=== PATIENT | male | born 1945 | race Caucasian/White ===

== ENCOUNTER 2018-07-07 22:10 | Emergency (ER) | payer MEDICARE ==
[2018-07-07] MEDS ORDERED: NS 0.9% 1000 ML*IV.FLUID IV ONE (22:35)
--- NOTE | 2018-07-07 22:40 | ED ---
Adult Trauma - HPI Summary HPI Summary: This patient is a 73 year old M brought in by ambulance with a chief complaint of fall since just [employer]. Patient reports throat pain, generalized myalgia, and abdominal pain, by yelling out in pain when touched in those places. The patient can barely talk and does not sit up during the examination or history. Level 5 caveat. I spoke with staff at the SNF and they tell me he was somewhat lethargic through the afternoon shift and had fever. This preceded his fall. They did not notice any other more specific problems. - History of Current Complaint Stated Complaint: FALL Hx From Patient Unobtainable Due To: Other - barely speaks or responds to verbal stimuli Mechanism of Injury: Fall Location: Neck, Abdomen/Pelvis Character: Aching - Allergy/Home Medications Allergies/Adverse Reactions: Allergies Allergy/AdvReac Type Severity Reaction Status Date / Time lactose Allergy Unknown Verified 07/07/18 23:00 Reaction Details Home Medications: Home Medications Aspirin [Aspir-Low] 81 mg PO DAILY 07/07/18 [History Confirmed 07/07/18] Losartan Potassium [Cozaar] 50 mg PO DAILY 07/07/18 [History Confirmed 07/07/18] Lurasidone(*) [Latuda] 20 mg PO DAILY 07/07/18 [History Confirmed 07/07/18] Memantine HCl 10 mg PO DAILY 07/07/18 [History Confirmed 07/07/18] QUEtiapine TAB* [Seroquel 100 MG *] 150 mg PO TID 07/07/18 [History Confirmed ] Trazodone HCl 100 mg PO BEDTIME 07/07/18 [History Confirmed 07/07/18] risperiDONE [Risperidone] 0.25 mg PO BID 07/07/18 [History Confirmed 07/07/18] PMH/Surg Hx/FS Hx/Imm Hx Previously Healthy: No - Patient is unable to give relevant history GI History: Reports: Other GI Disorders - SBO - Family History Known Family History: Positive: Unknown - unable to provide - Social History [facility]: [facility] Review of Systems - ROS Summary Review of Systems Summary: ROS limited due to the patient's inability to communicate, level 5 caveat Positive: Fever Positive: Sore Throat Positive: Abdominal Pain Positive: Myalgia - diffuse All Other Systems Reviewed And Are Negative: No Physical Exam - Summary Physical Exam Summary: Appearance: Well-appearing, Well-nourished, lying in bed comfortably. Lethargic. Follows simple commands but cannot engage in conversation. Skin: Warm, dry, no obvious rash Eyes: sclera anicteric, no conjunctival pallor ENT: mucous membranes moist, pharynx appears normal Neck: Supple, nontender Respiratory: Clear to auscultation, no signs of respiratory distress Cardiovascular: Normal S1, S2. No murmurs. Normal distal pulses in tibial and radial bilaterally. Abdomen: Soft, normal active bowel sounds present. Lower abdomen is tender to the touch but there are no peritoneal signs. Musculoskeletal: Normal, Strength/ROM Intact Neurological: awake and alert, mentation is somewhat confused, speech is mildly slurred. Psychiatric: affect is normal, does not appear anxious or depressed GCS: 14 Level 5 caveat, patient cannot give relevant history Triage Information Reviewed: Yes Vital Signs Reviewed: Yes Completion Of Physical Exam Limited Due To: Level 5 Diagnostics - Laboratory Result Diagrams: 07/07/18 23:49 07/07/18 23:50 Lab Statement: Any lab studies that have been ordered have been reviewed, and results considered in the medical decision making process. - Radiology CXR Radiology Interpretation Completed By: ED Physician Summary of Radiographic Findings: No acute disease, pending official report - CT Brain CT Interpretation Completed By: Radiologist Summary of CT Findings: No acute intracranial abnormality. ED physician has reviewed this report. Abd/Pelvis CT Interpretation Completed By: Radiologist Summary of CT Findings: 1. Dilated bilateral central renal collecting system likely related to markedly distended urinary bladder. 2. Large fecal load. No obstruction. 3. A small hiatal hernia. 4. Rectal wall thickening without discrete mass. Further evaluation may be considered.5. Multiple round hypodense lesions throughout the liver with the largest one measuring 2.3 cm which may represent cysts versus hemangiomas. ED physician has reviewed this report c-spine CT Interpretation Completed By: Radiologist Summary of CT Findings: no acute disease. ED physician has reviewed this report - EKG 22:56 Cardiac Rate: NL - 86 bpm EKG Rhythm: Sinus Rhythm Summary of EKG Findings: P waves, QRS complex, and T waves are within normal limits, T waves and intervals are normal, no ischemic changes. Adult Trauma Course/Dx - Course Course Of Treatment: This patient is a 73 year old M brought in by ambulance with a chief complaint of fall since just [employer]. Patient reports throat pain, generalized myalgia, and abdominal pain, by yelling out in pain when touched in those places. The patient can barely talk and does not sit up during the examination or history. An EKG reveals NSR 86 bpm, P waves, QRS complex, and T waves are within normal limits, T waves and intervals are normal, no ischemic changes. CXR reveals, per ED physician, no acute disease. Pending official radiology report. Brain CT reveals, No acute intracranial abnormality. CT Abd/ Pelvis reveals, 1. Dilated bilateral central renal collecting system likely related to markedly distended urinary bladder. 2. Large fecal load. No obstruction. 3. A small hiatal hernia. 4. Rectal wall thickening without discrete mass. Further evaluation may be considered.5. Multiple round hypodense lesions throughout the liver with the largest one measuring 2.3 cm which may represent cysts versus hemangiomas. C-spine CT reveals no acute disease. ED physician has reviewed these reports. A phone call with the patients longterm showed that he had been lethargic all shift and had a fever, prior to the fall, so his fall is likely due to an already-present illness. Test results with no significant abnormalities. In the ED course the patient was given IV fluids, Haloperidol, Iohexol, and Morphine. Patient will be discharged with follow up from Dr. Zavala. I spoke to the patient's and went over the findings of his evaluation here, including that a specific source of fever was not found. She was agreeable with him returning to the SNF. I have deferred ordering antibiotics as a specific bacterial source was not found and he does not appear septic. - Diagnoses Provider Diagnoses: Fever, Altered mental status Discharge - Sign-Out/Discharge Documenting (check all that apply): Patient Departure - discharge - Discharge Plan Condition: Good [facility]position: [facility] Patient Education Materials: Urinary Retention in Men (ED), Fever in Adults (ED ) Referrals: Tayler Zavala DO [Primary Care Provider] - Additional Instructions: Please monitor Mr. Zuleta to make sure he urinates, if he does not through the day he should be catheterized to drain the bladder. We did not turn up any precise source of infection. I would not recommend any antibiotic therapy at present. There were blood and urine cultures taken which will be resulting over the weekend which should be checked on. - Billing Disposition and Condition Condition: GOOD Disposition: [facility] Facility - Attestation Statements Document Initiated by Marilyn: Yes Documenting Scribe: Orion Melissa Provider For Whom Marilyn is Documenting (Include Credential): Glynn Pacheco MD Scribe Attestation: Orion Tim, scribed for Glynn Pacheco MD on 07/08/18 at 1832. Scribe Documentation Reviewed: Yes Provider Attestation: The documentation as recorded by the Orion krishna accurately reflects the service I personally performed and the decisions made by me, Glynn Pacheco MD Status of Scribe Document: Viewed
[2018-07-07] MEDS ORDERED: Haloperidol INJ IV/IM* 5 MG/ML AMP IV SLOW PU ONE (23:33)
[2018-07-08 00:01] LABS: ABS Basophils 0 10^3/ul (0-0.2); ABS Eosinophils 0.3 10^3/ul (0-0.6); ABS Lymphocytes 1.4 10^3/ul (1.0-4.8); ABS Neutrophils 8.8 10^3/ul (1.5-7.7); ABS Nucleated RBC 0 10^3/ul; Eosinophil % 2.2 %; Hematocrit 37 % (42-52); Hemoglobin 12.3 g/dl (14.0-18.0); Lymphocyte % 12.3 %; Mean Corpuscular HGB Conc 33 g/dl (31-36); Mean Corpuscular Hemoglobin 30 pg (27-31); Mean Corpuscular Volume 90 fL (80-94); Mean Platelet Volume 9.2 fL (7.4-10.4); Nucleated Red Blood Cells % 0; Platelet Count 263 10^3/ul (150-450); Red Blood Count 4.13 10^6/ul (4.00-5.40); Red Cell Distribution Width 13 % (10.5-15); White Blood Count 11.5 10^3/ul (3.5-10.8)
[2018-07-08] MEDS ORDERED: Morphine VIAL* 4 MG/ML VIAL (1 ml vial) IV ONE (00:01)
[2018-07-08 00:14] LABS: Activated Partial Thrombo Time 28.8 seconds (26.0-36.3); INR 0.98 (0.77-1.02)
[2018-07-08 00:17] LABS: Albumin 4.4 g/dL (3.2-5.2); Albumin/Globulin Ratio 1.5 (1-3); BUN/Creatinine Ratio 25.5 (8-20); C Reactive Protein 10.82 mg/L (<8.01); Calcium 9.6 mg/dL (8.6-10.3); EGFR Non-African American 68.1 (>60); Globulin 2.9 g/dL (2-4); Total Bilirubin 0.7 mg/dL (0.2-1.0); Total Protein 7.3 g/dL (6.4-8.9)
[2018-07-08] MEDS ORDERED: Iohexol 300* (CONTRAST) 10 ML SDV IV ONE (00:40)
[2018-07-08 04:00] LABS: Urine Appearance Cloudy; Urine Bilirubin Negative (Negative); Urine Blood Negative (Negative); Urine Color Yellow; Urine Glucose Negative (Negative); Urine Ketones Negative (Negative); Urine Nitrite Negative (Negative); Urine Protein Negative (Negative); Urine Specific Gravity 1.021 (1.010-1.030); Urine Urobilinogen Negative (Negative)
[2018-07-08 08:58] VITALS: BP 168/99
== END 2018-07-08 05:42 ==
LOC: ED 22:10
DX: R50.9 Fever, unspecified (principal); R41.82 Altered mental status, unspecified; J02.9 Acute pharyngitis, unspecified; R10.9 Unspecified abdominal pain; M79.10 Myalgia, unspecified site
CPT/HCPCS: 36415; 70450; 71045; 72125; 74177; 80053; 81003; 83605; 84484; 85025; 85610; 85730; 86140; 87040; 93005; 96361; 96374; 96375; 99284; J1630; J2270; Q9967

== ENCOUNTER 2018-07-08 21:27 | Observation (INO) | payer MEDICARE ==
[2018-07-08] MEDS ORDERED: NS 0.9% 1000 ML*IV.FLUID IV ONE (21:42)
[2018-07-08 23:16] LABS: ABS Basophils 0 10^3/ul (0-0.2); ABS Eosinophils 0.1 10^3/ul (0-0.6); ABS Lymphocytes 0.7 10^3/ul (1.0-4.8); ABS Monocytes 0.9 10^3/ul (0-0.8); ABS Neutrophils 8.7 10^3/ul (1.5-7.7); ABS Nucleated RBC 0 10^3/ul; Eosinophil % 0.5 %; Hematocrit 33 % (42-52); Hemoglobin 11.1 g/dl (14.0-18.0); Lymphocyte % 6.6 %; Mean Corpuscular HGB Conc 34 g/dl (31-36); Mean Corpuscular Hemoglobin 31 pg (27-31); Mean Corpuscular Volume 90 fL (80-94); Nucleated Red Blood Cells % 0; Platelet Count 214 10^3/ul (150-450); Red Blood Count 3.62 10^6/ul (4.00-5.40); Red Cell Distribution Width 13 % (10.5-15); White Blood Count 10.4 10^3/ul (3.5-10.8)
[2018-07-08 23:22] LABS: INR 1.06 (0.77-1.02)
[2018-07-08 23:35] LABS: Albumin 3.5 g/dL (3.2-5.2); Albumin/Globulin Ratio 1.2 (1-3); BUN/Creatinine Ratio 22.2 (8-20); Calcium 8.5 mg/dL (8.6-10.3); EGFR Non-African American 82.3 (>60); Potassium 3.8 mmol/L (3.5-5.0); Total Bilirubin 0.5 mg/dL (0.2-1.0); Total Protein 6.5 g/dL (6.4-8.9)
--- NOTE | 2018-07-08 23:44 | ED ---
Altered Mental Status - HPI Summary HPI Summary: This patient is a 73 year old M brought in by ambulance to [facility] from [facility] due to increased AMS and weakness with difficulty ambulating and a fall earlier in the day. LOC is unknown. Patient seen in ED yesterday s/p fall and was unable to communicate at that time due to AMS. Patient is unable to provide adequate history. Level 5 caveat. - History Of Current Complaint Chief Complaint: EDWeakness Stated Complaint: AMS Time Seen by Provider: 07/08/18 21:30 Hx Obtained From: EMS Hx From Patient Unobtainable Due To: Extremis Onset/Duration: Unknown Timing: Constant Severity Initially: Moderate Severity Currently: Severe Aggravating Factor(s): Unknown - Allergies/Home Medications Allergies/Adverse Reactions: Allergies Allergy/AdvReac Type Severity Reaction Status Date / Time lactose Allergy Unknown Verified 07/09/18 00:08 Reaction Details Home Medications: Home Medications Senna-Docusate Sodium Tablet 1 tab PO DAILY 07/09/18 [History Confirmed 07/09/18 ] PMH/Surg Hx/FS Hx/Imm Hx GI History: Reports: Other GI Disorders - SBO Neurological History: Reports: Hx Dementia Infectious Disease History: Unable to Obtain/Confirm Infectious Disease History: Denies: Traveled Outside the [place] in Last 30 Days - Family History Known Family History: Positive: Unknown - unable to provide - Social History [facility]: [facility] Alcohol Use: None Substance Use Type: Reports: None Smoking Status (MU): Never Smoked Tobacco Review of Systems Positive: Fatigue Positive: Weakness All Other Systems Reviewed And Are Negative: No - Comments Additional Review of Systems Comments: LEVEL 5 Caveat. Physical Exam - Summary Physical Exam Summary: Appearance: Well-appearing, Well-nourished, lying in bed comfortably, awake and alert with strong voice, but is unable to provide adequate history Skin: Warm, dry, no obvious rash Eyes: sclera anicteric, no conjunctival pallor ENT: mucous membranes moist, pharynx appears normal Neck: Supple, nontender Respiratory: Clear to auscultation, no signs of respiratory distress Cardiovascular: Normal S1, S2. No murmurs. Normal distal pulses in tibial and radial bilaterally. Abdomen: Soft, nontender, normal active bowel sounds present Musculoskeletal: Normal, Strength/ROM Intact Neurological:, awake and alert, mentation is normal, speech is fluent and appropriate Psychiatric: affect is normal, does not appear anxious or depressed Triage Information Reviewed: Yes Vital Signs On Initial Exam: Initial Vitals Temp Pulse Resp BP Pulse Ox 97.3 F 90 18 176/98 97 07/08/18 21:34 07/08/18 21:34 07/08/18 21:34 07/08/18 21:34 07/08/18 21:34 Vital Signs Reviewed: Yes Diagnostics - Vital Signs Vital Signs Temp Pulse Resp BP Pulse Ox 07/08/18 22:36 84 19 169/108 96 07/08/18 22:06 89 18 158/97 97 07/08/18 22:03 20 07/08/18 21:37 87 20 176/98 98 07/08/18 21:36 91 9 97 07/08/18 21:34 97.3 F 90 18 176/98 97 - Laboratory Lab Results: Lab Results 07/08/18 07/08/18 07/08/18 Range/Units 22:50 22:50 22:50 WBC 10.4 (3.5-10.8) 10^3/ul RBC 3.62 L (4.00-5.40) 10^6/ul Hgb 11.1 L (14.0-18.0) g/dl Hct 33 L (42-52) % MCV 90 (80-94) fL MCH 31 (27-31) pg MCHC 34 (31-36) g/dl RDW 13 (10.5-15) % Plt Count 214 (150-450) 10^3/ul MPV 9.0 (7.4-10.4) fL Neut % (Auto) 83.6 % Lymph % (Auto) 6.6 % [place] % (Auto) 9.0 % Eos % (Auto) 0.5 % Baso % (Auto) 0.3 % Absolute Neuts (auto) 8.7 H (1.5-7.7) 10^3/ul Absolute Lymphs (auto) 0.7 L (1.0-4.8) 10^3/ul Absolute Monos (auto) 0.9 H (0-0.8) 10^3/ul Absolute Eos (auto) 0.1 (0-0.6) 10^3/ul Absolute Basos (auto) 0 (0-0.2) 10^3/ul Absolute Nucleated RBC 0 10^3/ul Nucleated RBC % 0 INR (Anticoag Therapy) 1.06 H (0.77-1.02) Sodium 138 (135-145) mmol/L Potassium 3.8 (3.5-5.0) mmol/L Chloride 109 (101-111) mmol/L Carbon Dioxide 23 (22-32) mmol/L Anion Gap 6 (2-11) mmol/L BUN 20 (6-24) mg/dL Creatinine 0.90 (0.67-1.17) mg/dL Est GFR ( Amer) 99.5 (>60) Est GFR (Non-Af Amer) 82.3 (>60) BUN/Creatinine Ratio 22.2 H (8-20) Glucose 107 H (70-100) mg/dL Lactic Acid (0.5-2.0) mmol/L Calcium 8.5 L (8.6-10.3) mg/dL Total Bilirubin 0.50 (0.2-1.0) mg/dL AST 15 (13-39) U/L ALT 9 (7-52) U/L Alkaline Phosphatase 73 (34-104) U/L Troponin I 0.00 (<0.04) ng/mL Total Protein 6.5 (6.4-8.9) g/dL Albumin 3.5 (3.2-5.2) g/dL Globulin 3.0 (2-4) g/dL Albumin/Globulin Ratio 1.2 (1-3) 07/08/18 Range/Units 22:50 WBC (3.5-10.8) 10^3/ul RBC (4.00-5.40) 10^6/ul Hgb (14.0-18.0) g/dl Hct (42-52) % MCV (80-94) fL MCH (27-31) pg MCHC (31-36) g/dl RDW (10.5-15) % Plt Count (150-450) 10^3/ul MPV (7.4-10.4) fL Neut % (Auto) % Lymph % (Auto) % [place] % (Auto) % Eos % (Auto) % Baso % (Auto) % Absolute Neuts (auto) (1.5-7.7) 10^3/ul Absolute Lymphs (auto) (1.0-4.8) 10^3/ul Absolute Monos (auto) (0-0.8) 10^3/ul Absolute Eos (auto) (0-0.6) 10^3/ul Absolute Basos (auto) (0-0.2) 10^3/ul Absolute Nucleated RBC 10^3/ul Nucleated RBC % INR (Anticoag Therapy) (0.77-1.02) Sodium (135-145) mmol/L Potassium (3.5-5.0) mmol/L Chloride (101-111) mmol/L Carbon Dioxide (22-32) mmol/L Anion Gap (2-11) mmol/L BUN (6-24) mg/dL Creatinine (0.67-1.17) mg/dL Est GFR ( Amer) (>60) Est GFR (Non-Af Amer) (>60) BUN/Creatinine Ratio (8-20) Glucose (70-100) mg/dL Lactic Acid 1.1 (0.5-2.0) mmol/L Calcium (8.6-10.3) mg/dL Total Bilirubin (0.2-1.0) mg/dL AST (13-39) U/L ALT (7-52) U/L Alkaline Phosphatase (34-104) U/L Troponin I (<0.04) ng/mL Total Protein (6.4-8.9) g/dL Albumin (3.2-5.2) g/dL Globulin (2-4) g/dL Albumin/Globulin Ratio (1-3) Result Diagrams: 07/09/18 06:32 07/08/18 22:50 Lab Statement: Any lab studies that have been ordered have been reviewed, and results considered in the medical decision making process. Altered Mental Statu Course/Dx - Course Course Of Treatment: 73 year old M brought in by ambulance to [facility] from [facility] due to increased AMS and weakness with difficulty ambulating and a fall earlier in the day. LOC is unknown. Patient seen in ED yesterday s/p fall and was unable to communicate at that time due to AMS. Patient is unable to provide adequate history due to dementia. Level 5 caveat. Patient is otherwise awake and alert. Patient is given 2310mls of IV fluids. Bloodwork obtained with WBC 11.2. Case discussed with hospitalist, Dr. Gentile, who agress to admit at 11:38. - Diagnoses Provider Diagnoses: Altered mental status, Frequent falls Discharge - Sign-Out/Discharge Documenting (check all that apply): Patient Departure - admit - Discharge Plan Condition: Stable Disposition: ADMITTED TO [facility] - Billing Disposition and Condition Condition: STABLE Disposition: Admitted to [facility] - Attestation Statements Document Initiated by Marilyn: Yes Documenting Scribe: Ai Pepe Provider For Whom Mariyln is Documenting (Include Credential): Glynn Pacheco MD Scribe Attestation: Ai Tim, scribed for Glynn Pacheco MD on 07/09/18 at 1845. Scribe Documentation Reviewed: Yes Provider Attestation: The documentation as recorded by the Ai krishna accurately reflects the service I personally performed and the decisions made by Glynn gibbs MD Status of Scribe Document: Viewed
[2018-07-09] MEDS ORDERED: HYDROcodone/ACETAMIN 5-325 MG* 1 TAB PO PRN (04:03)
[2018-07-09] MEDS: amLODIPine TAB* 5 MG PO SCH ×2 (05:05→08:04)
[2018-07-09 07:00] LABS: ABS Basophils 0 10^3/ul (0-0.2); ABS Eosinophils 0.2 10^3/ul (0-0.6); ABS Neutrophils 8.1 10^3/ul (1.5-7.7); ABS Nucleated RBC 0 10^3/ul; Hematocrit 31 % (42-52); Hemoglobin 10.7 g/dl (14.0-18.0); Lymphocyte % 9.4 %; Mean Corpuscular HGB Conc 34 g/dl (31-36); Mean Corpuscular Hemoglobin 31 pg (27-31); Mean Corpuscular Volume 90 fL (80-94); Mean Platelet Volume 9.4 fL (7.4-10.4); Nucleated Red Blood Cells % 0; Platelet Count 204 10^3/ul (150-450); Red Blood Count 3.48 10^6/ul (4.00-5.40); Red Cell Distribution Width 13 % (10.5-15); White Blood Count 10.3 10^3/ul (3.5-10.8)
[2018-07-09] MEDS ORDERED: LORazepam INJ* 2 MG/ML 1 ML VIAL IV PUSH ONE (07:42)
[2018-07-09] MEDS: Lidocaine 2% JELLY* 6 ML JELLY TOPICAL SCH ×3 (08:03→21:16)
[2018-07-09] MEDS: QUEtiapine TAB* 100 MG PO SCH ×2 (08:04→14:48)
[2018-07-09] MEDS: Aspirin EC TAB* 81 MG TAB.EC PO SCH (08:04)
[2018-07-09] MEDS: Senna TAB PO SCH (08:04)
[2018-07-09] MEDS: Lurasidone(*) 20 MG TAB PO SCH (08:04)
[2018-07-09] MEDS: Memantine TAB* 10 MG PO SCH (08:04)
[2018-07-09] MEDS ORDERED: Losartan TAB* 25 MG PO SCH (09:00)
--- NOTE | 2018-07-09 12:00 | PN ---
Subjective Date of Service: 07/09/18 Interval History: Mr. Zuleta awakens to gentle stimulation and states, "oh boy." His family confirms that he sleeps during the day and is up all night, which has been his pattern for decades. His notes that he has had urinary retention intermittently for quite some time and that he used to straight cath himself before he forgot how to do it. He has also had a bell in the past but he pulled it out once and also cut the tubing with a pair of scissors. Objective Active Medications: Hydrocodone Bitart/Acetaminophen ([place] 5-325 Tab*) 1 tab PO Q6H PRN Amlodipine Besylate (Norvasc Tab*) 5 mg PO DAILY TAY Aspirin (Aspirin Ec Tab*) 81 mg PO DAILY TAY Lidocaine HCl (Lidocaine 2% Jelly*) 1 applic TOPICAL TID TAY Losartan Potassium (Cozaar Tab*) 50 mg PO DAILY TAY Lurasidone HCl (Latuda) 20 mg PO DAILY TAY Memantine (Namenda Tab*) 10 mg PO DAILY TAY Quetiapine Fumarate (Seroquel Tab*) 150 mg PO TID TAY Risperidone (Risperdal) 0.25 mg PO BID TAY Senna (Senokot Tab*) 1 tab PO DAILY TAY Trazodone HCl (Desyrel Tab*) 100 mg PO BEDTIME TAY Vital Signs: Temp Pulse Resp BP Pulse Ox 98.3 F 74 18 164/86 96 07/09/18 08:04 07/09/18 08:04 07/09/18 08:14 07/09/18 08:04 07/09/18 08:04 Oxygen Devices in Use Now: None Appearance: Male lying in bed in NAD Eyes: No Scleral Icterus Respiratory: Symmetrical Chest Expansion and Respiratory Effort, Clear to Auscultation Cardiovascular: NL Sounds; No Murmurs; No JVD, No Edema Abdominal: NL Sounds; No Tenderness; No Distention Extremities: No Edema Skin: No Rash or Ulcers Neurological: NL Muscle Strength and Tone, - - Sleeping, awakens to gentle stimulation, speech clear, follows commands Nutrition: Taking PO's Result Diagrams: 07/09/18 06:32 07/08/18 22:50 Additional Lab and Data: . Assess/Plan/Problems-Billing Assessment: Mr. Zuleta is a 73 yo M with a PMH of dementia and hypertension who was admitted on 07/09/18 with increased weakness found to have urinary retention, s/p bell placement. - Patient Problems (1) Dementia Comment: - Continue home meds and supportive care. - Family interested in decreasing meds as they are concerned this is contributing to falls, would not recommend change at this point as patient has been combative while inpatient. (2) Urinary retention Comment: - Bell with 1000ml out in ED. - Will need to be discharged with bell or routine straight caths to follow up with urology outpatient. - UA negative 07/08/18 - Start flomax and proscar (3) Hypertension Comment: - SBP 160-190s. - Amlodipine added on arrival, monitor. (4) DVT prophylaxis Comment: - Heparin SQ (5) DNR (do not resuscitate) Comment: Status and Disposition: OBV. Anticipate discharge back to [facility] when stable.
[2018-07-09] MEDS ORDERED: Docusate CAP* 100 MG PO PRN (12:10)
[2018-07-09] MEDS ORDERED: Polyethylene Glycol 3350* 17 GM PACKET PO PRN (12:10)
--- NOTE | 2018-07-09 13:28 | HP ---
CC: Dr. Zavala, [facility] HISTORY AND PHYSICAL: DATE OF ADMISSION: 07/09/18 CHIEF COMPLAINT: Fall. HISTORY OF PRESENT ILLNESS: Mr. Zuleta is a 73-year-old resident of [facility], who was in the emergency department yesterday after a fall and reports of increased lethargy and decreased responsiveness. The patient cannot give any history due to dementia. The patient had a negative head CT, negative C- spine, and a CT of the abdomen and pelvison 07/08/18 which showed a distended bladder, large volume of stool. At that time, he was diagnosed with some urinary retention but then was not catheterized. He was sent home with orders to catheterize in the jail if he did not void. The UA taken at 3 :40 a.m. on the day prior to admission was negative for infection of blood. There was also a negative flu swab taken yesterday. The patient's was in contact with the ER yesterday and okayed him going back to the jail. However, today, he had another fall and was less responsive again and was sent back to the emergency department. PAST MEDICAL HISTORY: Includes: 1. Alzheimer disease. 2. Hypertension. 3. BPH. 4. Osteoporosis. PAST SURGICAL HISTORY: Unknown. MEDICATIONS: In the emergency room: 1. Aspirin 81 mg p.o. daily. 2. Cozaar 50 mg p.o. daily. 3. Latuda 20 mg p.o. daily. 4. Memantine 10 mg p.o. daily. 5. Seroquel 150 mg p.o. t.i.d. 6. Risperidone 0.25 mg p.o. b.i.d. 7. Senna/docusate 1 tab p.o. daily. 8. Trazodone 100 mg p.o. q.h.s. ALLERGIES: Lactose. FAMILY HISTORY: Attempted but unable to respond due to his dementia. SOCIAL HISTORY: He is . Rest of the social history is unknown, it is not documented in the jail records. REVIEW OF SYSTEMS: Attempted, unable to respond due to his dementia. PHYSICAL EXAMINATION GENERAL: He is sleeping but arousable, he answers yes or no questions appropriately at times. VITAL SIGNS: Temperature is 36.3; pulse 83, up to 102; respirations are 20; blood pressure is 192/96; oxygen saturation 97%. HEENT: Head is normocephalic, atraumatic. Sclerae anicteric. Pupils equal, round, reactive to light and accommodation. Oropharynx is moist. No lesions. NECK: No JVD. No carotid bruits. No thyromegaly. LUNGS: Clear to auscultation and percussion bilaterally. HEART: Tachycardic, regular, no murmurs. ABDOMEN: Soft. Tender in the suprapubic region, positive bowel sounds, no masses. EXTREMITIES: No peripheral edema. Dorsalis pedis pulses are 1+ bilaterally. NEUROLOGIC: Cranial nerves II through XII are intact. Motor strength is not assessed, but he is moving all 4 extremities with equal power. He is alert when aroused but not oriented to place, time, or person. LABORATORY DATA: Sodium 138, potassium 3.8, chloride 109, bicarb 23, BUN 20, creatinine 0.9, glucose 107. White count 10.4, hemoglobin 11.1, hematocrit 33% , platelets 214. AST is 115, ALT is 9, lactic acid 1.1, troponin 0.00, INR 1.06. Chest x-ray was negative on the day prior to admission. Head CT negative on the day prior to admission. ASSESSMENT AND PLAN: A 73-year-old man with repeated falls in the jail and altered mental status. No clear infectious or reversible etiology of these falls are found on a thorough workup yesterday and today. He has had some bladder distention on CT yesterday and I will place a Jo catheter given the diagnosis of urinary retention as a cause of his confusion. He also had constipation on CT yesterday and I will make sure he is started on a good bowel regimen today. No other sign of pneumonia, UTI, or other infection or metabolic derangement which would cause confusion or fall as was found. He may have a viral syndrome. Code status is do not resuscitate per jail records. DVT prophylaxis will be sequential compression devices. [id number] #: [id number] MTDD
[2018-07-09] MEDS: Heparin VIAL(*) 5000 UNITS/ML VIAL (FIVE THOUSAND) SUBCUT SCH ×2 (14:49→21:17)
[2018-07-09] MEDS ORDERED: QUEtiapine TAB* 100 MG PO ONE (18:20)
[2018-07-09] MEDS ORDERED: QUEtiapine TAB* 25 MG PO ONE (19:00)
[2018-07-09] MEDS ORDERED: traZODone TAB* 100 MG PO SCH (21:00)
[2018-07-10] MEDS: Heparin VIAL(*) 5000 UNITS/ML VIAL (FIVE THOUSAND) SUBCUT SCH (05:35)
[2018-07-10] MEDS ORDERED: Finasteride TAB* 5 MG PO SCH (09:00)
[2018-07-10] MEDS ORDERED: QUEtiapine TAB* 100 MG PO SCH (09:00)
[2018-07-10] MEDS ORDERED: Tamsulosin CAP* 0.4 MG PO SCH (09:00)
[2018-07-10] MEDS ORDERED: Losartan TAB* 25 MG PO SCH (09:00)
[2018-07-10] MEDS: Memantine TAB* 10 MG PO SCH (10:42)
[2018-07-10] MEDS: Lurasidone(*) 20 MG TAB PO SCH (10:42)
[2018-07-10] MEDS: Aspirin EC TAB* 81 MG TAB.EC PO SCH (10:42)
[2018-07-10] MEDS: amLODIPine TAB* 5 MG PO SCH (10:42)
[2018-07-10] MEDS: Senna TAB PO SCH (10:42)
[2018-07-10] MEDS: Lidocaine 2% JELLY* 6 ML JELLY TOPICAL SCH (10:42)
--- NOTE | 2018-07-10 11:13 | PN ---
Subjective Date of Service: 07/10/18 Interval History: Mr. Zuleta is confused and minimally interactive but is in no acute distress. Objective Active Medications: Hydrocodone Bitart/Acetaminophen ([place] 5-325 Tab*) 1 tab PO Q6H PRN Amlodipine Besylate (Norvasc Tab*) 5 mg PO DAILY [facility] Aspirin (Aspirin Ec Tab*) 81 mg PO DAILY TAY Docusate Sodium (Colace Cap*) 100 mg PO BID PRN Finasteride (Proscar Tab*) 5 mg PO DAILY [facility] Heparin Sodium (Porcine) (Heparin Vial(*)) 5,000 units SUBCUT Q8HR TAY Lidocaine HCl (Lidocaine 2% Jelly*) 1 applic TOPICAL TID TAY Losartan Potassium (Cozaar Tab*) 100 mg PO DAILY TAY Lurasidone HCl (Latuda) 20 mg PO DAILY TAY Memantine (Namenda Tab*) 10 mg PO DAILY TAY Polyethylene Glycol/Electrolytes (Miralax*) 17 gm PO DAILY PRN Quetiapine Fumarate (Seroquel Tab*) 150 mg PO TID [facility] Risperidone (Risperdal) 0.25 mg PO BID TAY Senna (Senokot Tab*) 1 tab PO DAILY TAY Tamsulosin HCl (Flomax Cap*) 0.4 mg PO DAILY TAY Trazodone HCl (Desyrel Tab*) 100 mg PO BEDTIME [facility] Vital Signs: Temp Pulse Resp BP Pulse Ox 98.4 F 76 18 150/81 97 07/10/18 07:59 07/10/18 07:59 07/10/18 07:59 07/10/18 07:59 07/10/18 07:59 Oxygen Devices in Use Now: None Appearance: Male lying in bed in NAD Eyes: No Scleral Icterus Ears/Nose/Mouth/Throat: Mucous Membranes Moist Neck: Trachea Midline Respiratory: Symmetrical Chest Expansion and Respiratory Effort, Clear to Auscultation Cardiovascular: NL Sounds; No Murmurs; No JVD, No Edema Abdominal: NL Sounds; No Tenderness; No Distention Extremities: No Edema Skin: No Rash or Ulcers Neurological: NL Muscle Strength and Tone, - - Opens eyes to voice, says a few words, no deficits noted, ambulated to bathroom independently, hx of dementia Nutrition: Taking PO's Result Diagrams: 07/09/18 06:32 07/08/18 22:50 Additional Lab and Data: Lab Results 07/08/18 07/08/18 07/08/18 Range/Units 22:50 22:50 22:50 WBC 10.4 (3.5-10.8) 10^3/ul RBC 3.62 L (4.00-5.40) 10^6/ul Hgb 11.1 L (14.0-18.0) g/dl Hct 33 L (42-52) % MCV 90 (80-94) fL MCH 31 (27-31) pg MCHC 34 (31-36) g/dl RDW 13 (10.5-15) % Plt Count 214 (150-450) 10^3/ul MPV 9.0 (7.4-10.4) fL Neut % (Auto) 83.6 % Lymph % (Auto) 6.6 % [place] % (Auto) 9.0 % Eos % (Auto) 0.5 % Baso % (Auto) 0.3 % Absolute Neuts (auto) 8.7 H (1.5-7.7) 10^3/ul Absolute Lymphs (auto) 0.7 L (1.0-4.8) 10^3/ul Absolute Monos (auto) 0.9 H (0-0.8) 10^3/ul Absolute Eos (auto) 0.1 (0-0.6) 10^3/ul Absolute Basos (auto) 0 (0-0.2) 10^3/ul Absolute Nucleated RBC 0 10^3/ul Nucleated RBC % 0 INR (Anticoag Therapy) 1.06 H (0.77-1.02) Sodium 138 (135-145) mmol/L Potassium 3.8 (3.5-5.0) mmol/L Chloride 109 (101-111) mmol/L Carbon Dioxide 23 (22-32) mmol/L Anion Gap 6 (2-11) mmol/L BUN 20 (6-24) mg/dL Creatinine 0.90 (0.67-1.17) mg/dL Est GFR ( Amer) 99.5 (>60) Est GFR (Non-Af Amer) 82.3 (>60) BUN/Creatinine Ratio 22.2 H (8-20) Glucose 107 H (70-100) mg/dL Lactic Acid (0.5-2.0) mmol/L Calcium 8.5 L (8.6-10.3) mg/dL Total Bilirubin 0.50 (0.2-1.0) mg/dL AST 15 (13-39) U/L ALT 9 (7-52) U/L Alkaline Phosphatase 73 (34-104) U/L Troponin I 0.00 (<0.04) ng/mL Total Protein 6.5 (6.4-8.9) g/dL Albumin 3.5 (3.2-5.2) g/dL Globulin 3.0 (2-4) g/dL Albumin/Globulin Ratio 1.2 (1-3) 07/08/18 Range/Units 22:50 WBC (3.5-10.8) 10^3/ul RBC (4.00-5.40) 10^6/ul Hgb (14.0-18.0) g/dl Hct (42-52) % MCV (80-94) fL MCH (27-31) pg MCHC (31-36) g/dl RDW (10.5-15) % Plt Count (150-450) 10^3/ul MPV (7.4-10.4) fL Neut % (Auto) % Lymph % (Auto) % [place] % (Auto) % Eos % (Auto) % Baso % (Auto) % Absolute Neuts (auto) (1.5-7.7) 10^3/ul Absolute Lymphs (auto) (1.0-4.8) 10^3/ul Absolute Monos (auto) (0-0.8) 10^3/ul Absolute Eos (auto) (0-0.6) 10^3/ul Absolute Basos (auto) (0-0.2) 10^3/ul Absolute Nucleated RBC 10^3/ul Nucleated RBC % INR (Anticoag Therapy) (0.77-1.02) Sodium (135-145) mmol/L Potassium (3.5-5.0) mmol/L Chloride (101-111) mmol/L Carbon Dioxide (22-32) mmol/L Anion Gap (2-11) mmol/L BUN (6-24) mg/dL Creatinine (0.67-1.17) mg/dL Est GFR ( Amer) (>60) Est GFR (Non-Af Amer) (>60) BUN/Creatinine Ratio (8-20) Glucose (70-100) mg/dL Lactic Acid 1.1 (0.5-2.0) mmol/L Calcium (8.6-10.3) mg/dL Total Bilirubin (0.2-1.0) mg/dL AST (13-39) U/L ALT (7-52) U/L Alkaline Phosphatase (34-104) U/L Troponin I (<0.04) ng/mL Total Protein (6.4-8.9) g/dL Albumin (3.2-5.2) g/dL Globulin (2-4) g/dL Albumin/Globulin Ratio (1-3) Microbiology and Other Data: Microbiology 07/08/18 23:12 Aerobic Blood Culture - Preliminary Blood Venous No Growth Day 1 Anaerobic Blood Culture - Preliminary No Growth Day 1 07/08/18 23:00 Aerobic Blood Culture - Preliminary Blood Venous No Growth Day 1 Anaerobic Blood Culture - Preliminary No Growth Day 1 07/09/18 03:10 Nasal Screen MRSA (PCR) - Final Nasal Mrsa Detected Assess/Plan/Problems-Billing Assessment: Mr. Zuleta is a 73 yo M with a PMH of dementia and hypertension who was admitted on 07/09/18 with increased weakness found to have urinary retention, s/p bell placement. - Patient Problems (1) Dementia Comment: - Continue home meds and supportive care. - Family interested in decreasing meds as they are concerned this is contributing to falls, would not recommend change at this point as patient has been combative while inpatient. - Would consider decreasing meds outpatient if possible. (2) Urinary retention Comment: - Bell with 1000ml out in ED. - Plan to d/c with recommendation for at least qday straight caths. - UA negative 07/08/18 - Start flomax and proscar - Recommend outpatient follow up with Urology (3) Hypertension Comment: - SBP 150-160s. - Amlodipine added on arrival (4) DVT prophylaxis Comment: - Heparin SQ (5) DNR (do not resuscitate) Comment: Status and Disposition: OBV. Discharge to [facility].
--- NOTE | 2018-07-10 12:53 | DS ---
CC: [facility] MEDICINE DISCHARGE SUMMARY: Please note that this discharge summary will serve as an H and P for the admission to [facility]. ATTENDING PHYSICIAN: Dr. Meza * (Dictation provided by Melva Martin NP) DATE OF ADMISSION: 07/09/18 DATE OF DISCHARGE: 07/10/18 PRIMARY DIAGNOSIS: Urinary retention likely secondary to benign prostatic hypertrophy. SECONDARY DIAGNOSES: 1. Alzheimer disease. 2. Hypertension. 3. Benign prostatic hypertrophy. 4. Osteoporosis. MEDICATIONS: At the time of discharge are: 1. Senna 1 tab p.o. daily (new medication). 2. Quetiapine 150 mg p.o. t.i.d. 3. Risperidone 0.25 mg p.o. b.i.d. 4. Trazodone 100 mg p.o. at bedtime. 5. Namenda 10 mg p.o. daily. 6. Latuda 20 mg p.o. daily. 7. Losartan 50 mg p.o. daily. 8. Aspirin 81 mg p.o. daily. 9. Amlodipine 5 mg p.o. daily (new medication). 10. Tamsulosin 0.4 mg p.o. daily (new medication). 11. Polyethylene glycol 17 g p.o. daily p.r.n. (new medication). 12. Finasteride 5 mg p.o. daily (new medication). 13. Docusate 100 mg p.o. b.i.d. p.r.n. HISTORY OF PRESENT ILLNESS: Mr. Zuleta is a 73-year-old male who presented to the emergency room on 07/09/18 out of concern for weakness. Please see the dictated H and P from Dr. Fortino Gentile for complete details. In brief, the patient had been to the emergency room with evaluation with a head CT, C-spine CT, and CT of the abdomen on 07/07/18. At that time, the CT brain and CT C- spine were read as normal and it was believed that the CT abdomen was normal, but on retrospective review, I do see that it did show large volume of urinary retention. The patient had been sent back to [facility] and then developed increased lethargy and decreased responsiveness and returned to the ED on . A review was made of the CT scan and note was made of urinary retention and a Jo was placed. Mr. Zuleta has been doing well since admission. I have spoken at length with the patient's . She states that he has a long-term known history of urinary retention. In the past, he would straight cath himself until he " forgot how to do it." The patient also has a history of pulling out and cutting his Jo in the past. Therefore, I think the Jo catheter is not a safe option. He will therefore require twice daily straight catheterization with further catheterization as needed for urinary retention. The patient has also been recommended to follow up with [facility] and I have also started Flomax and Proscar. Mr Zuleta has significant dementia. He is reported to have multiple year-long history of sleeping during the day and being awake at night, which has been evidenced here in the hospital. He has been generally behaviorally appropriate and we have continued the medications, which were started at [facility] for episodes of aggression. The patient's has been concerned about these medications and the fact that they might increase his raisk of falls. I have counseled her that I think it would be more appropriate for the providers at [facility] to address any adjustments to this medication as he would need close follow up and monitoring. Mr. Zuleta is medically stable for discharge to home. DISPOSITION: To [facility]. DIET: Regular. ACTIVITY: As tolerated. RECOMMENDATIONS: Please straight cath b.i.d. and as needed for urinary retention. FOLLOWUP PLANS: Please consider followup with [facility] for urinary retention. TIME SPENT: Approximately 60 minutes was spent on the discharge of this patient , more than half the time was spent with the patient at the bedside reviewing the events leading up to this hospitalization, performing the physical examination, and reviewing the plan of care. MELVA MARTIN, SANDRA [id number]/CPS #: [id number] AURELIA
[2018-07-10 13:02] VITALS: BP 133/67
== END 2018-07-10 13:50 ==
LOC: ED 21:27 → MED 07-09 00:48
PROVIDERS: ADMIT Internal Medicine; ATTEND Internal Medicine
DX: R33.9 Retention of urine, unspecified (principal); G30.9 Alzheimer's disease, unspecified; F02.80 Dementia in other diseases classified elsewhere, unspecified severity, without behavioral disturbance, psychotic disturbance, mood disturbance, and anxiety; I10 Essential (primary) hypertension; N40.0 Benign prostatic hyperplasia without lower urinary tract symptoms; M81.0 Age-related osteoporosis without current pathological fracture; Z79.82 Long term (current) use of aspirin
CPT/HCPCS: 36415; 80053; 83605; 84484; 85025; 85610; 86140; 87040; 87641; 96372; 96374; 99285; A9270-GY; G0378; J1644

== ENCOUNTER 2018-08-28 16:11 | Emergency (ER) | payer MEDICARE ==
--- NOTE | 2018-08-28 16:51 | ED ---
Head Injury - HPI Summary HPI Summary: Patient is a 73-year-old male presenting to the ED from [facility] with an apparent fall, which was unwitnessed. Patient denied any pain or concerns, however he has dementia. On arrival, he is difficult to arouse. He is responsive, although with sternal rub and painful stimulation. He was sent by [facility] for a head CT. Unknown if he takes blood thinners. - History Of Current Complaint Chief Complaint: EDAltMentalStatus Stated Complaint: FALL Time Seen by Provider: 08/28/18 16:18 Hx Obtained From: Patient Mechanism Of Injury: Direct Blow Onset/Duration: Started Hours Ago Onset of Pain: Hours Severity Currently: Moderate Severity Initially: Moderate Pain Intensity: 0 Pain Scale Used: 0-10 Numeric - Risk Factors SDH Risk Factor: Male - Allergies/Home Medications Allergies/Adverse Reactions: Allergies Allergy/AdvReac Type Severity Reaction Status Date / Time lactose Allergy Unknown Verified 08/28/18 17:50 Reaction Details PMH/Surg Hx/FS Hx/Imm Hx Previously Healthy: Yes Cardiovascular History: Reports: Hx Hypertension GI History: Reports: Other GI Disorders - SBO History: Reports: Hx Benign Prostatic Hyperplasia Musculoskeletal History: Reports: Hx Osteoporosis Sensory History: Denies: Hx Contacts or Glasses, Hx Hearing Aid Opthamlomology History: Denies: Hx Contacts or Glasses Neurological History: Reports: Hx Dementia Infectious Disease History: No Infectious Disease History: Denies: Traveled Outside the [place] in Last 30 Days - Family History Known Family History: Positive: Unknown - unable to provide - Social History Occupation: Unemployed [facility] Alcohol Use: None Hx Substance Use: No Substance Use Type: Reports: None Hx Tobacco Use: No Smoking Status (MU): Never Smoked Tobacco Review of Systems Constitutional: Negative Negative: Fever, Chills, Fatigue, Skin Diaphoresis Negative: Palpitations, Chest Pain Negative: Shortness Of Breath, Cough Genitourinary: Negative Positive: no symptoms reported, see HPI Negative: Arthralgia, Myalgia Skin: Negative Neurological: Negative Psychological: Normal All Other Systems Reviewed And Are Negative: Yes Physical Exam Triage Information Reviewed: Yes Vital Signs On Initial Exam: Initial Vitals Temp Pulse Resp BP Pulse Ox 97.5 F 69 8 138/84 92 08/28/18 16:25 08/28/18 16:25 08/28/18 16:25 08/28/18 16:25 08/28/18 16:25 Completion Of Physical Exam Limited Due To: Altered Mental Status - dementia at baseline, decreased responsiveness Skin: Positive: Skin Color Reflects Adequate Perfusion Head/Face: Positive: Normal Head/Face Inspection Eyes: Positive: EOMI, BINA, Conjunctiva Clear Respiratory/Lung Sounds: Positive: Other - decreased respirations Cardiovascular: Positive: Pulses are Symmetrical in both Upper and Lower Extremities Musculoskeletal: Positive: Strength/ROM Intact Neurological: Positive: Sensory/Motor Intact, Speech Normal AVPU Assessment: Pain (Reponds To) - responds only to painful stimuli - Erna Coma Scale Best Eye Response: 2 - To Pain Best Motor Response: 5 - Purposeful Movement Best Verbal Response: 3 - Inappropriate Words Coma Scale Total: 10 Diagnostics - Vital Signs Vital Signs Temp Pulse Resp BP Pulse Ox 08/28/18 16:25 97.5 F 69 8 138/84 92 - Laboratory Lab Statement: Any lab studies that have been ordered have been reviewed, and results considered in the medical decision making process. Head Injury Course/Dx Course Of Treatment: On arrival into the ED, patient is lethargic and sleeping. He denies any pain. He is difficult to arouse, but arousable. He is arousable with painful stimulation and sternal rub. He is able to open his eyes and respond appropriately, however continues to shut his eyes and states he is tired. CT brain obtained which shows no acute intracranial abnormalities. Previous visits to the ED for same and notes indicate he has had similar behaviors of head injury with subsequent decreased responsiveness and lethargy. Vital signs are 97.5, heart rate 69, respirations 8, 92% on room air at 138/84. Tech at bedside x 20 minutes with measuring respirations averagin between 13-18. Monitor not picking up well d/t shallow respirations. Patient awakens x 2 and attempts to leave, ambulating well and talking. He is safe for discharge home at this time and no other signs of trauma are visualized. - Diagnoses Provider Diagnoses: Dementia, Head injury, Fall Discharge - Sign-Out/Discharge Documenting (check all that apply): Patient Departure Patient Received Moderate/Deep Sedation with Procedure: No - Discharge Plan Condition: Stable Disposition: HOME Referrals: Tayler Zavala DO [Primary Care Provider] - Additional Instructions: Do not give Trazodone this evening before bed Patient is lethargic and tired No intracranial abnormalities - Billing Disposition and Condition Condition: STABLE Disposition: Home
[2018-08-28 18:41] VITALS: BP 127/74
== END 2018-08-28 19:10 | disposition home or self-care (01) ==
LOC: ED 16:11
DX: F03.90 Unspecified dementia, unspecified severity, without behavioral disturbance, psychotic disturbance, mood disturbance, and anxiety (principal); S09.90XA Unspecified injury of head, initial encounter; I10 Essential (primary) hypertension; N40.0 Benign prostatic hyperplasia without lower urinary tract symptoms; W19.XXXA Unspecified fall, initial encounter; Y92.9 Unspecified place or not applicable
CPT/HCPCS: 70450; 99285

== ENCOUNTER 2018-12-06 22:44 | Emergency (ER) | payer MEDICARE, OTHER ==
--- NOTE | 2018-12-07 00:05 | ED ---
Adult Trauma - HPI Summary HPI Summary: Patient from [facility] complains of fall 2 today. History of recurrent falls. Patient baseline "pleasantly confused". No anti-coag. Medical history is dementia, HTN. Patient intermittently coherent and answers, but denies pain. - History of Current Complaint Chief Complaint: EDFall Stated Complaint: FALL PER EMS Time Seen by Provider: 12/06/18 23:03 Hx Obtained From: Patient Mechanism of Injury: Fall Loss of Consciousness: unsure Current Severity: None Pain Intensity: 0 Pain Scale Used: 0-10 Numeric Aggravating Factor(s): Nothing Alleviating Factor(s): Nothing - Additional Pertinent History Primary Care Physician: JACKY - Allergy/Home Medications Allergies/Adverse Reactions: Allergies Allergy/AdvReac Type Severity Reaction Status Date / Time lactose Allergy Unknown Verified 12/06/18 23:01 Reaction Details PMH/Surg Hx/FS Hx/Imm Hx Endocrine/Hematology History: Denies: Hx Anticoagulant Therapy Cardiovascular History: Reports: Hx Hypertension GI History: Reports: Other GI Disorders - SBO History: Reports: Hx Benign Prostatic Hyperplasia Musculoskeletal History: Reports: Hx Osteoporosis Sensory History: Denies: Hx Contacts or Glasses, Hx Hearing Aid Opthamlomology History: Denies: Hx Contacts or Glasses Neurological History: Reports: Hx Dementia Infectious Disease History: No Infectious Disease History: Denies: Traveled Outside the [place] in Last 30 Days - Family History Known Family History: Positive: Unknown - unable to provide - Social History Alcohol Use: None Hx Substance Use: No Substance Use Type: Reports: None Hx Tobacco Use: No Smoking Status (MU): Never Smoked Tobacco Review of Systems Constitutional: Negative Eyes: Negative ENT: Negative Cardiovascular: Negative Respiratory: Negative Gastrointestinal: Negative Genitourinary: Negative Musculoskeletal: Negative Skin: Negative Neurological: Negative Psychological: Normal All Other Systems Reviewed And Are Negative: Yes Physical Exam - Summary Physical Exam Summary: No trauma noted to mouth, face, head. Full range of motion of jaw and neck. No pain with palpation of neck, chest wall, back, abdomen. Patient moving all 4 extremities without indication of pain. Abdomen soft nontender. Lung sounds clear to auscultation bilaterally. No facial droop or slurred speech. Triage Information Reviewed: Yes Vital Signs On Initial Exam: Initial Vitals Temp Pulse Resp BP Pulse Ox 97.8 F 81 18 155/98 95 12/06/18 22:56 12/06/18 22:56 12/06/18 22:56 12/06/18 22:56 12/06/18 22:56 Vital Signs Reviewed: Yes Appearance: Positive: Well-Appearing Skin: Positive: Warm Head/Face: Positive: Normal Head/Face Inspection Eyes: Positive: Normal Dental: Negative: Dental Fracture @, Bleeding Neck: Positive: Supple Respiratory/Lung Sounds: Positive: Clear to Auscultation Cardiovascular: Positive: Normal Abdomen Description: Positive: Nontender Musculoskeletal: Positive: Normal Neurological: Positive: Normal Psychiatric: Positive: Normal AVPU Assessment: Alert - Erna Coma Scale Best Eye Response: 4 - Spontaneous Best Motor Response: 6 - Obeys Commands Best Verbal Response: 5 - Oriented Coma Scale Total: 15 Diagnostics - Vital Signs Vital Signs Temp Pulse Resp BP Pulse Ox 12/06/18 22:56 97.8 F 81 18 155/98 95 - Laboratory Lab Statement: Any lab studies that have been ordered have been reviewed, and results considered in the medical decision making process. Adult Trauma Course/Dx - Course Course Of Treatment: Patient from [facility] complains of fall 2 today. History of recurrent falls. Patient baseline "pleasantly confused". No anti-coag. Medical history is dementia, HTN. Patient intermittently coherent and answers, but denies pain. Physical exam:No trauma noted to mouth, face, head. Full range of motion of jaw and neck. No pain with palpation of neck, chest wall, back, abdomen. Patient moving all 4 extremities without indication of pain. Abdomen soft nontender. Lung sounds clear to auscultation bilaterally. No facial droop or slurred speech. Vital signs within normal limits. Imaging of head and C-spine initially considered just to be safe though no indication for imaging suggested by physical exam. Patient is not anticoagulated. However patient not cooperative with imaging. Due to lack of evidence of trauma, decision was made to not sedate patient for the sake of imaging. Patient is from assisted, and likely to be brought to the ED should any concerning symptoms subsequently develop. - Diagnoses Provider Diagnoses: Fall Discharge - Sign-Out/Discharge Documenting (check all that apply): Patient Departure Patient Received Moderate/Deep Sedation with Procedure: No - Discharge Plan Condition: Stable Disposition: RESIDENTIAL FACILITY Patient Education Materials: Fall Prevention for Older Adults (ED) Referrals: Tayler Zavala DO [Primary Care Provider] - Additional Instructions: Adult Trauma - History of Current Complaint Chief Complaint: EDFall Stated Complaint: FALL PER EMS Time Seen by Provider: 12/06/18 23:03 Pain Intensity: 0 - Additional Pertinent History Primary Care Physician: JACKY - Allergy/Home Medications Allergies/Adverse Reactions: Allergies Allergy/AdvReac Type Severity Reaction Status Date / Time lactose Allergy Unknown Verified 12/06/18 23:01 Reaction Details PMH/Surg Hx/FS Hx/Imm Hx Cardiovascular History: Reports: Hx Hypertension GI History: Reports: Other GI Disorders - SBO History: Reports: Hx Benign Prostatic Hyperplasia Musculoskeletal History: Reports: Hx Osteoporosis Sensory History: Denies: Hx Contacts or Glasses, Hx Hearing Aid Opthamlomology History: Denies: Hx Contacts or Glasses Neurological History: Reports: Hx Dementia Infectious Disease History: No Infectious Disease History: Denies: Traveled Outside the [place] in Last 30 Days - Family History Known Family History: Positive: Unknown - unable to provide - Social History Alcohol Use: None Hx Substance Use: No Substance Use Type: Reports: None Hx Tobacco Use: No Smoking Status (MU): Never Smoked Tobacco Physical Exam Vital Signs On Initial Exam: Initial Vitals Temp Pulse Resp BP Pulse Ox 97.8 F 81 18 155/98 95 12/06/18 22:56 12/06/18 22:56 12/06/18 22:56 12/06/18 22:56 12/06/18 22:56 Diagnostics - Vital Signs Vital Signs Temp Pulse Resp BP Pulse Ox 12/06/18 22:56 97.8 F 81 18 155/98 95 - Laboratory Lab Statement: Any lab studies that have been ordered have been reviewed, and results considered in the medical decision making process. Adult Trauma Course/Dx - Diagnoses Provider Diagnoses: Fall Discharge - Sign-Out/Discharge Documenting (check all that apply): Patient Departure Patient Received Moderate/Deep Sedation with Procedure: No - Discharge Plan Condition: Stable Disposition: RESIDENTIAL FACILITY Patient Education Materials: Fall Prevention for Older Adults (ED) Referrals: Tayler Zavala DO [Primary Care Provider] - - Billing Disposition and Condition Condition: STABLE Disposition: [facility] Adult Trauma - History of Current Complaint Chief Complaint: EDFall Stated Complaint: FALL PER EMS Time Seen by Provider: 12/06/18 23:03 Pain Intensity: 0 - Additional Pertinent History Primary Care Physician: JACKY - Allergy/Home Medications Allergies/Adverse Reactions: Allergies Allergy/AdvReac Type Severity Reaction Status Date / Time lactose Allergy Unknown Verified 12/06/18 23:01 Reaction Details PMH/Surg Hx/FS Hx/Imm Hx Cardiovascular History: Reports: Hx Hypertension GI History: Reports: Other GI Disorders - SBO History: Reports: Hx Benign Prostatic Hyperplasia Musculoskeletal History: Reports: Hx Osteoporosis Sensory History: Denies: Hx Contacts or Glasses, Hx Hearing Aid Opthamlomology History: Denies: Hx Contacts or Glasses Neurological History: Reports: Hx Dementia Infectious Disease History: No Infectious Disease History: Denies: Traveled Outside the [place] in Last 30 Days - Family History Known Family History: Positive: Unknown - unable to provide - Social History Alcohol Use: None Hx Substance Use: No Substance Use Type: Reports: None Hx Tobacco Use: No Smoking Status (MU): Never Smoked Tobacco Physical Exam Vital Signs On Initial Exam: Initial Vitals Temp Pulse Resp BP Pulse Ox 97.8 F 81 18 155/98 95 12/06/18 22:56 12/06/18 22:56 12/06/18 22:56 12/06/18 22:56 12/06/18 22:56 Diagnostics - Vital Signs Vital Signs Temp Pulse Resp BP Pulse Ox 12/06/18 22:56 97.8 F 81 18 155/98 95 - Laboratory Lab Statement: Any lab studies that have been ordered have been reviewed, and results considered in the medical decision making process. Adult Trauma Course/Dx - Diagnoses Provider Diagnoses: Fall Discharge - Sign-Out/Discharge Documenting (check all that apply): Patient Departure Patient Received Moderate/Deep Sedation with Procedure: No - Discharge Plan Condition: Stable Disposition: RESIDENTIAL FACILITY Patient Education Materials: Fall Prevention for Older Adults (ED) Referrals: Tayler Zavala DO [Primary Care Provider] - - Billing Disposition and Condition Condition: STABLE Disposition: [facility] Adult Trauma - History of Current Complaint Chief Complaint: EDFall Stated Complaint: FALL PER EMS Time Seen by Provider: 12/06/18 23:03 Pain Intensity: 0 - Additional Pertinent History Primary Care Physician: JACKY - Allergy/Home Medications Allergies/Adverse Reactions: Allergies Allergy/AdvReac Type Severity Reaction Status Date / Time lactose Allergy Unknown Verified 12/06/18 23:01 Reaction Details PMH/Surg Hx/FS Hx/Imm Hx Cardiovascular History: Reports: Hx Hypertension GI History: Reports: Other GI Disorders - SBO History: Reports: Hx Benign Prostatic Hyperplasia Musculoskeletal History: Reports: Hx Osteoporosis Sensory History: Denies: Hx Contacts or Glasses, Hx Hearing Aid Opthamlomology History: Denies: Hx Contacts or Glasses Neurological History: Reports: Hx Dementia Infectious Disease History: No Infectious Disease History: Denies: Traveled Outside the [place] in Last 30 Days - Family History Known Family History: Positive: Unknown - unable to provide - Social History Alcohol Use: None Hx Substance Use: No Substance Use Type: Reports: None Hx Tobacco Use: No Smoking Status (MU): Never Smoked Tobacco Physical Exam Vital Signs On Initial Exam: Initial Vitals Temp Pulse Resp BP Pulse Ox 97.8 F 81 18 155/98 95 12/06/18 22:56 12/06/18 22:56 12/06/18 22:56 12/06/18 22:56 12/06/18 22:56 Diagnostics - Vital Signs Vital Signs Temp Pulse Resp BP Pulse Ox 12/06/18 22:56 97.8 F 81 18 155/98 95 - Laboratory Lab Statement: Any lab studies that have been ordered have been reviewed, and results considered in the medical decision making process. Adult Trauma Course/Dx - Diagnoses Provider Diagnoses: Fall Discharge - Sign-Out/Discharge Documenting (check all that apply): Patient Departure Patient Received Moderate/Deep Sedation with Procedure: No - Discharge Plan Condition: Stable Disposition: RESIDENTIAL FACILITY Patient Education Materials: Fall Prevention for Older Adults (ED) Referrals: Tayler Zavala DO [Primary Care Provider] - - Billing Disposition and Condition Condition: STABLE Disposition: [facility] Adult Trauma - History of Current Complaint Chief Complaint: EDFall Stated Complaint: FALL PER EMS Time Seen by Provider: 12/06/18 23:03 Pain Intensity: 0 - Additional Pertinent History Primary Care Physician: JACKY - Allergy/Home Medications Allergies/Adverse Reactions: Allergies Allergy/AdvReac Type Severity Reaction Status Date / Time lactose Allergy Unknown Verified 12/06/18 23:01 Reaction Details PMH/Surg Hx/FS Hx/Imm Hx Cardiovascular History: Reports: Hx Hypertension GI History: Reports: Other GI Disorders - SBO History: Reports: Hx Benign Prostatic Hyperplasia Musculoskeletal History: Reports: Hx Osteoporosis Sensory History: Denies: Hx Contacts or Glasses, Hx Hearing Aid Opthamlomology History: Denies: Hx Contacts or Glasses Neurological History: Reports: Hx Dementia Infectious Disease History: No Infectious Disease History: Denies: Traveled Outside the [place] in Last 30 Days - Family History Known Family History: Positive: Unknown - unable to provide - Social History Alcohol Use: None Hx Substance Use: No Substance Use Type: Reports: None Hx Tobacco Use: No Smoking Status (MU): Never Smoked Tobacco Physical Exam Vital Signs On Initial Exam: Initial Vitals Temp Pulse Resp BP Pulse Ox 97.8 F 81 18 155/98 95 12/06/18 22:56 12/06/18 22:56 12/06/18 22:56 12/06/18 22:56 12/06/18 22:56 Diagnostics - Vital Signs Vital Signs Temp Pulse Resp BP Pulse Ox 12/06/18 22:56 97.8 F 81 18 155/98 95 - Laboratory Lab Statement: Any lab studies that have been ordered have been reviewed, and results considered in the medical decision making process. Adult Trauma Course/Dx - Diagnoses Provider Diagnoses: Fall Discharge - Sign-Out/Discharge Documenting (check all that apply): Patient Departure Patient Received Moderate/Deep Sedation with Procedure: No - Discharge Plan Condition: Stable Disposition: RESIDENTIAL FACILITY Patient Education Materials: Fall Prevention for Older Adults (ED) Referrals: Tayler Zavala DO [Primary Care Provider] - - Billing Disposition and Condition Condition: STABLE Disposition: [facility] Adult Trauma - History of Current Complaint Chief Complaint: EDFall Stated Complaint: FALL PER EMS Time Seen by Provider: 12/06/18 23:03 Pain Intensity: 0 - Additional Pertinent History Primary Care Physician: JACKY - Allergy/Home Medications Allergies/Adverse Reactions: Allergies Allergy/AdvReac Type Severity Reaction Status Date / Time lactose Allergy Unknown Verified 12/06/18 23:01 Reaction Details PMH/Surg Hx/FS Hx/Imm Hx Cardiovascular History: Reports: Hx Hypertension GI History: Reports: Other GI Disorders - SBO History: Reports: Hx Benign Prostatic Hyperplasia Musculoskeletal History: Reports: Hx Osteoporosis Sensory History: Denies: Hx Contacts or Glasses, Hx Hearing Aid Opthamlomology History: Denies: Hx Contacts or Glasses Neurological History: Reports: Hx Dementia Infectious Disease History: No Infectious Disease History: Denies: Traveled Outside the [place] in Last 30 Days - Family History Known Family History: Positive: Unknown - unable to provide - Social History Alcohol Use: None Hx Substance Use: No Substance Use Type: Reports: None Hx Tobacco Use: No Smoking Status (MU): Never Smoked Tobacco Physical Exam Vital Signs On Initial Exam: Initial Vitals Temp Pulse Resp BP Pulse Ox 97.8 F 81 18 155/98 95 12/06/18 22:56 12/06/18 22:56 12/06/18 22:56 12/06/18 22:56 12/06/18 22:56 Diagnostics - Vital Signs Vital Signs Temp Pulse Resp BP Pulse Ox 12/06/18 22:56 97.8 F 81 18 155/98 95 - Laboratory Lab Statement: Any lab studies that have been ordered have been reviewed, and results considered in the medical decision making process. Adult Trauma Course/Dx - Diagnoses Provider Diagnoses: Fall Discharge - Sign-Out/Discharge Documenting (check all that apply): Patient Departure Patient Received Moderate/Deep Sedation with Procedure: No - Discharge Plan Condition: Stable Disposition: RESIDENTIAL FACILITY Patient Education Materials: Fall Prevention for Older Adults (ED) Referrals: Tayler Zavala DO [Primary Care Provider] - - Billing Disposition and Condition Condition: STABLE Disposition: [facility] Return to the ED for any new or worsening symptoms. - Billing Disposition and Condition Condition: STABLE Disposition: [facility]
[2018-12-07 02:35] VITALS: BP 160/98
== END 2018-12-07 02:58 ==
LOC: ED 22:44
DX: Z91.81 History of falling (principal); I10 Essential (primary) hypertension; F03.90 Unspecified dementia, unspecified severity, without behavioral disturbance, psychotic disturbance, mood disturbance, and anxiety
CPT/HCPCS: 99283

== ENCOUNTER 2018-12-31 18:53 | Emergency (ER) | payer MEDICARE, OTHER, BC ==
[2018-12-31] MEDS ORDERED: Haloperidol INJ IV/IM* 5 MG/ML AMP ONE (19:23)
[2018-12-31] MEDS ORDERED: Lorazepam PYXIS KEY ONE (19:23)
[2018-12-31] MEDS ORDERED: LORazepam INJ* 2 MG/ML 1 ML VIAL IM ONE (19:23)
[2018-12-31] MEDS ORDERED: Haloperidol INJ IV/IM* 5 MG/ML AMP IM ONE ×2 (19:23→20:04)
[2018-12-31] MEDS ORDERED: Lorazepam PYXIS KEY PRN (19:23)
[2018-12-31] MEDS ORDERED: LORazepam INJ* 2 MG/ML 1 ML VIAL ONE (19:24)
--- NOTE | 2018-12-31 19:26 | ED ---
Adult Trauma - HPI Summary HPI Summary: A 73 y/o male brought in by [facility] ambulance presents to [facility] with a chief complaint of a fall today. He has abrasions on his left arm from the fall. Per triage note, the patient was from [place] and has a Hx of frequent falls and dementia. He rated his pain as a 0/10 in severity. - History of Current Complaint Chief Complaint: EDFall Stated Complaint: EVALUATION AFTER FALL PER EMS Time Seen by Provider: 12/31/18 19:19 Hx Obtained From: Patient Mechanism of Injury: Fall Onset/Duration: Started Hours Ago Onset of Pain: Immediate, Post Accident, Prior to Arrival Onset Severity: Mild Current Severity: Mild Pain Intensity: 0 Pain Scale Used: 0-10 Numeric Location: Other - abrasions on left arm Aggravating Factor(s): Nothing Alleviating Factor(s): Nothing Associated Signs & Symptoms: Positive: Other: - abrasions left arm. Negative: Fever - Additional Pertinent History Primary Care Physician: JACKY - Allergy/Home Medications Allergies/Adverse Reactions: Allergies Allergy/AdvReac Type Severity Reaction Status Date / Time lactose Allergy Unknown Verified 12/06/18 23:01 Reaction Details PMH/Surg Hx/FS Hx/Imm Hx Endocrine/Hematology History: Denies: Hx Anticoagulant Therapy Cardiovascular History: Reports: Hx Hypertension GI History: Reports: Other GI Disorders - SBO History: Reports: Hx Benign Prostatic Hyperplasia Musculoskeletal History: Reports: Hx Osteoporosis Sensory History: Denies: Hx Contacts or Glasses, Hx Hearing Aid Opthamlomology History: Denies: Hx Contacts or Glasses Neurological History: Reports: Hx Dementia Infectious Disease History: No Infectious Disease History: Denies: Traveled Outside the [place] in Last 30 Days - Family History Known Family History: Positive: Unknown - unable to provide - Social History Alcohol Use: None Hx Substance Use: No Substance Use Type: Reports: None Hx Tobacco Use: No Smoking Status (MU): Never Smoked Tobacco Review of Systems Negative: Fever Positive: Other - positive: abrasions left arm post fall All Other Systems Reviewed And Are Negative: Yes Physical Exam - Summary Physical Exam Summary: VITAL SIGNS: Reviewed. GENERAL: Patient is a well-developed and nourished MALE who is lying comfortable in the stretcher. Patient is not in any acute respiratory distress. HEAD AND FACE: No signs of trauma. No ecchymosis, hematomas or skull depressions. No sinus tenderness. EYES: PERRLA, EOMI x 2, No injected conjunctiva, no nystagmus. EARS: Hearing grossly intact. Ear canals and tympanic membranes are within normal limits. MOUTH: Oropharynx within normal limits. NECK: Supple, trachea is midline, no adenopathy, no JVD, no carotid bruit, no c- spine tenderness, neck with full ROM CHEST: Symmetric, no tenderness at palpation LUNGS: Clear to auscultation bilaterally. No wheezing or crackles. CVS: Regular rate and rhythm, S1 and S2 present, no murmurs or gallops appreciated. ABDOMEN: Soft, non-tender. No signs of distention. No rebound no guarding, and no masses palpated. Bowel sounds are normal. EXTREMITIES: FROM in all major joints, no edema, no cyanosis or clubbing. NEURO: Alert and oriented x 3. No acute neurological deficits. Speech is normal and follows commands. SKIN: Dry and warm Triage Information Reviewed: Yes Vital Signs On Initial Exam: Initial Vitals Temp Pulse Resp BP Pulse Ox 99.2 F 91 18 194/95 98 12/31/18 19:02 12/31/18 19:02 12/31/18 19:02 12/31/18 19:02 12/31/18 19:02 Vital Signs Reviewed: Yes Diagnostics - Vital Signs Vital Signs Temp Pulse Resp BP Pulse Ox 12/31/18 19:02 99.2 F 91 18 194/95 98 - Laboratory Result Diagrams: 12/31/18 20:09 12/31/18 20:09 Lab Statement: Any lab studies that have been ordered have been reviewed, and results considered in the medical decision making process. Adult Trauma Course/Dx - Course Course Of Treatment: A 73 y/o male brought in by [facility] ambulance presents to [facility] with a chief complaint of a fall today. In the ED course the patient was given Haldol IM and Ativan IM. Bloodwork, chemistries and urines obtained. Urines consistent with a UTI. The patient will be discharged with a prescription for Levaquin and follow up with his PCP. The patient is agreeable with this plan. - Diagnoses Provider Diagnoses: UTI (urinary tract infection) Discharge - Sign-Out/Discharge Documenting (check all that apply): Patient Departure - DC Patient Received Moderate/Deep Sedation with Procedure: No - Discharge Plan Condition: Stable Disposition: HOME Prescriptions: Levofloxacin TAB* [Levaquin TAB*] 500 mg PO DAILY #7 tab Levofloxacin TAB* [Levaquin TAB*] 500 mg PO DAILY #7 tab Levofloxacin TAB* [Levaquin TAB*] 500 mg PO DAILY #7 tab Patient Education Materials: Urinary Tract Infection in Men (DC) Referrals: [facility] [Outside] Additional Instructions: Levaquin 500mg daily for 1 week. PLEASE RETURN TO THE ED IMMEDIATELY FOR WORSENING OR CONCERNING SYMPTOMS. - Billing Disposition and Condition Condition: STABLE Disposition: Home - Attestation Statements Document Initiated by Scribe: Yes Documenting Scribe: Collin Lemus Provider For Whom Scribe is Documenting (Include Credential): Juana Kiran MD Scribe Attestation: Collin Tim, scribed for Juana Kiran MD on 01/01/19 at 0512. Scribe Documentation Reviewed: Yes Provider Attestation: The documentation as recorded by the Collin krishna accurately reflects the service I personally performed and the decisions made by Steven gibbs MD Status of Scribe Document: Viewed
[2018-12-31 20:17] LABS: ABS Basophils 0.1 10^3/ul (0-0.2); ABS Lymphocytes 1.1 10^3/ul (1.0-4.8); ABS Neutrophils 9.3 10^3/ul (1.5-7.7); Eosinophil % 0.1 %; Hematocrit 37 % (42-52); Hemoglobin 12.5 g/dL (14.0-18.0); Lymphocyte % 9.7 %; Mean Corpuscular HGB Conc 34 g/dL (31-36); Mean Corpuscular Hemoglobin 30 pg (27-31); Mean Corpuscular Volume 88 fL (80-94); Mean Platelet Volume 8.8 fL (7.4-10.4); Nucleated Red Blood Cells % 0.1; Platelet Count 241 10^3/uL (150-450); Red Blood Count 4.17 10^6 /uL (4.18-5.48); Red Cell Distribution Width 14 % (10-15); White Blood Count 11.5 10^3/uL (3.5-10.8)
[2018-12-31 20:27] LABS: Activated Partial Thrombo Time 28.8 seconds (26.0-38.0); INR 1.01 (0.82-1.09)
[2018-12-31 20:34] LABS: Albumin 4.3 g/dL (3.2-5.2); Albumin/Globulin Ratio 1.4 (1-3); BUN/Creatinine Ratio 25.8 (8-20); Calcium 9.4 mg/dL (8.6-10.3); EGFR African American 91.3 (>60); EGFR Non-African American 75.5 (>60); Globulin 3.1 g/dL (2-4); Total Bilirubin 0.5 mg/dL (0.2-1.0); Total Protein 7.4 g/dL (6.4-8.9)
[2018-12-31 21:06] LABS: TSH (Thyroid Stimulating Horm) 2.77 mcIU/mL (0.34-5.60)
[2018-12-31 22:14] LABS: Urine Appearance Cloudy; Urine Bacteria 1+ (Absent); Urine Bilirubin Negative (Negative); Urine Blood Negative (Negative); Urine Color Yellow; Urine Glucose Negative (Negative); Urine Ketones Negative (Negative); Urine Nitrite Positive (Negative); Urine Protein Negative (Negative); Urine Red Blood Cell Absent (Absent); Urine Specific Gravity 1.021 (1.010-1.030); Urine Urobilinogen Negative (Negative); Urine White Blood Cell 3+(>20/hpf) (Absent)
[2019-01-01] MEDS ORDERED: Levofloxacin TAB* 500 MG PO ONE (00:14)
[2019-01-01 01:20] VITALS: BP 148/85
== END 2019-01-01 00:30 | disposition home or self-care (01) ==
LOC: ED 18:53
DX: N39.0 Urinary tract infection, site not specified (principal); I10 Essential (primary) hypertension
CPT/HCPCS: 36415; 80053; 81003; 81015; 82550; 84443; 85025; 85610; 85730; 87077; 87086; 87186; 96372; 99284; J1630; J2060

== ENCOUNTER 2019-01-02 13:22 | Emergency (ER) | payer MEDICARE, BC ==
[2019-01-02] MEDS ORDERED: NS 0.9% 1000 ML** 1,000 ML IV ONE (13:28)
[2019-01-02 14:54] LABS: ABS Eosinophils 0.1 10^3/ul (0-0.6); ABS Lymphocytes 0.9 10^3/ul (1.0-4.8); ABS Monocytes 1.4 10^3/ul (0-0.8); ABS Neutrophils 5.9 10^3/ul (1.5-7.7); Eosinophil % 0.9 %; Hematocrit 36 % (42-52); Hemoglobin 12.2 g/dL (14.0-18.0); Lymphocyte % 10.3 %; Mean Corpuscular HGB Conc 34 g/dL (31-36); Mean Corpuscular Hemoglobin 30 pg (27-31); Mean Corpuscular Volume 89 fL (80-94); Mean Platelet Volume 9.1 fL (7.4-10.4); Platelet Count 196 10^3/uL (150-450); Red Blood Count 4.07 10^6 /uL (4.18-5.48); Red Cell Distribution Width 13 % (10-15); White Blood Count 8.4 10^3/uL (3.5-10.8)
[2019-01-02 15:04] LABS: INR 1.15 (0.82-1.09)
--- NOTE | 2019-01-02 15:08 | ED ---
Altered Mental Status - HPI Summary HPI Summary: Patient is a 73-year-old female residing at [facility] presenting to the ED by EMS. from [place] sent for further imaging due to patients increase of confusion, lethargy, inactivity which has been worsening 2 days. He was seen at [facility] 2 days ago following a fall. No imaging was completed at that time. Patient does have Alzheimer's and dementia, however has had decreased activity per nursing staff and not acting himself. They're also concerned that he did not have any imaging and there is ecchymosis of the right side of the head and face as well as right shoulder. Patient denies any pain with movement of the right shoulder. He remains ambulatory. Currently on Levaquin for a diagnosis of UTI 2 days ago. - History Of Current Complaint Chief Complaint: EDAltMentalStatus Stated Complaint: AMS PER EMS Time Seen by Provider: 01/02/19 13:28 Hx Obtained From: Patient Onset/Duration: Unknown Timing: Constant Severity Initially: Moderate Severity Currently: Moderate Character: Confusion Aggravating Factor(s): Nothing Alleviating Factor(s): Nothing - Risk Factors Cardiac Risk Factors: Negative CVA Risk Factor: Negative - Allergies/Home Medications Allergies/Adverse Reactions: Allergies Allergy/AdvReac Type Severity Reaction Status Date / Time lactose Allergy Unknown Verified 12/06/18 23:01 Reaction Details Home Medications: Home Medications Acetaminophen TAB* [Tylenol TAB*] 650 mg PO Q6H PRN 01/02/19 [History Confirmed 01/02/19] Ergocalciferol CAP* [Drisdol CAP*] 50,000 units PO WEEKLY 01/02/19 [History Confirmed 01/02/19] Losartan TAB* [Cozaar TAB*] 50 mg PO DAILY 01/02/19 [History Confirmed 01/02/19] Memantine TAB* [Namenda TAB*] 10 mg PO DAILY 01/02/19 [History Confirmed ] QUEtiapine TAB* [Seroquel 25 MG TAB*] 50 mg PO DAILY 01/02/19 [History Confirmed 01/02/19] QUEtiapine TAB* [Seroquel 25 MG TAB*] 150 mg PO QPM 01/02/19 [History Confirmed 01/02/19] Sulfamethox/Trimethoprim DS* [Bactrim DS 800/160 TAB*] 1 tab PO BID 01/02/19 [ History Confirmed 01/02/19] traZODone TAB* [Desyrel TAB*] 50 mg PO BEDTIME 01/02/19 [History Confirmed 01/02] PMH/Surg Hx/FS Hx/Imm Hx Previously Healthy: Yes Endocrine/Hematology History: Denies: Hx Anticoagulant Therapy Cardiovascular History: Reports: Hx Hypertension GI History: Reports: Other GI Disorders - SBO History: Reports: Hx Benign Prostatic Hyperplasia Musculoskeletal History: Reports: Hx Osteoporosis Sensory History: Denies: Hx Contacts or Glasses, Hx Hearing Aid Opthamlomology History: Denies: Hx Contacts or Glasses Neurological History: Reports: Hx Dementia - Immunization History Hx Pertussis Vaccination: No Immunizations Up to Date: Yes Infectious Disease History: No Infectious Disease History: Denies: Traveled Outside the [place] in Last 30 Days - Family History Known Family History: Positive: Unknown - unable to provide - Social History Occupation: Unemployed Lives: [facility] Alcohol Use: None Hx Substance Use: No Substance Use Type: Reports: None Hx Tobacco Use: No Smoking Status (MU): Never Smoked Tobacco Review of Systems Constitutional: Negative Negative: Fever, Chills, Fatigue, Skin Diaphoresis Negative: Palpitations, Chest Pain Negative: Shortness Of Breath, Cough Genitourinary: Negative Positive: no symptoms reported, see HPI Negative: Arthralgia, Myalgia Positive: Bruising - right side of head and R shoulder Neurological: Negative All Other Systems Reviewed And Are Negative: Yes Physical Exam Triage Information Reviewed: Yes Vital Signs On Initial Exam: Initial Vitals Temp Pulse Resp BP Pulse Ox 98.1 F 80 17 126/73 97 01/02/19 13:28 01/02/19 13:28 01/02/19 13:28 01/02/19 13:28 01/02/19 13:28 Completion Of Physical Exam Limited Due To: Dementia, Altered Mental Status Appearance: Positive: Well-Appearing Skin: Positive: Skin Color Reflects Adequate Perfusion, Other - ecchymosis to the R side of head and R shoulder Head/Face: Positive: Normal Head/Face Inspection Eyes: Positive: EOMI, Conjunctiva Clear Neck: Positive: Supple, No Lymphadenopathy Respiratory/Lung Sounds: Positive: Clear to Auscultation, Breath Sounds Present Cardiovascular: Positive: RRR, Pulses are Symmetrical in both Upper and Lower Extremities Musculoskeletal: Positive: Strength/ROM Intact Neurological: Positive: Normal - at baseline for patient AVPU Assessment: Alert Diagnostics - Vital Signs Vital Signs Temp Pulse Resp BP Pulse Ox 01/02/19 13:47 96 01/02/19 13:37 80 15 126/73 100 01/02/19 13:28 98.1 F 80 17 126/73 97 - Laboratory Lab Results: Lab Results 01/02/19 Range/Units 14:45 WBC 8.4 (3.5-10.8) 10^3/uL RBC 4.07 L (4.18-5.48) 10^6 /uL Hgb 12.2 L (14.0-18.0) g/dL Hct 36 L (42-52) % MCV 89 (80-94) fL MCH 30 (27-31) pg MCHC 34 (31-36) g/dL RDW 13 (10-15) % Plt Count 196 (150-450) 10^3/uL MPV 9.1 (7.4-10.4) fL Neut % (Auto) 71.1 % Lymph % (Auto) 10.3 % [place] % (Auto) 17.2 % Eos % (Auto) 0.9 % Baso % (Auto) 0.5 % Absolute Neuts (auto) 5.9 (1.5-7.7) 10^3/ul Absolute Lymphs (auto) 0.9 L (1.0-4.8) 10^3/ul Absolute Monos (auto) 1.4 H (0-0.8) 10^3/ul Absolute Eos (auto) 0.1 (0-0.6) 10^3/ul Absolute Basos (auto) 0.0 (0-0.2) 10^3/ul Absolute Nucleated RBC 0.0 10^3/ul Nucleated RBC % 0.0 Result Diagrams: 01/02/19 14:45 01/02/19 14:45 Lab Statement: Any lab studies that have been ordered have been reviewed, and results considered in the medical decision making process. Altered Mental Statu Course/Dx - Course Course Of Treatment: During this course of treatment, the patient is evaluated for increased lethargy, increased confusion, inactivity which has been worsening per nursing staff. Patient demented and is level V caveat. On arrival into the ED, the patient is noted to be hypotensive at 78/52. He was given 2 L fluids and this improved to 120/84. Patient appears well, however has ecchymosis the right side of the face as well as right side of the shoulder. Other vital signs are stable and he does not require oxygen. Heart rate 72. Chest x-ray obtained which is negative for any acute findings. CT brain as well as cervical spine obtained, both of which were negative. Labs obtained, also of which were negative and consistent with labs from 2 days ago. Urine culture was sent yesterday and will return tomorrow. Patient likely is confused due to UTI and will need continuous treatment with Levaquin as prescribed. We'll call with any differing results from culture and any need for change of antibiotic medication. On discharge, vital signs again are stable and patient was ambulating well. - Diagnoses Differential Diagnosis/HQI/PQRI: Hypoxia, Intracranial Bleed, Metabolic Disorder , Sepsis Provider Diagnoses: Fall, Confusion, UTI (urinary tract infection) - Critical Care Time Critical Care Time: 30-74 min Discharge - Sign-Out/Discharge Documenting (check all that apply): Patient Departure Patient Received Moderate/Deep Sedation with Procedure: No - Discharge Plan Condition: Stable Disposition: HOME Referrals: No Primary Care Phys,NOPCP [Primary Care Provider] - Additional Instructions: No evidence of abnormalities on brain CT or cervical spine. Chest xray clear with no signs of pneumonia labs obtained and are normal Patient will be discharged home and will call [place] tomorrow if organism from UTI is not susceptible to current antibiotic Patient has been stable, ambulating OK and vital signs have been stable Unremarkable visit to ED - Billing Disposition and Condition Condition: STABLE Disposition: Home
[2019-01-02 15:14] LABS: Albumin/Globulin Ratio 1.4 (1-3); BUN/Creatinine Ratio 23.5 (8-20); EGFR African American 90.2 (>60); EGFR Non-African American 74.6 (>60); Globulin 2.9 g/dL (2-4); Magnesium 2.2 mg/dL (1.9-2.7); Potassium 3.5 mmol/L (3.5-5.0); Total Bilirubin 1.6 mg/dL (0.2-1.0); Total Protein 6.9 g/dL (6.4-8.9)
[2019-01-02 16:20] VITALS: BP 151/89
--- NOTE | 2019-01-04 05:37 | PN ---
Progress Note - Progress Note Date of Service: 01/02/19 Note: Urine culture growing >100k e. coli. Pt. currently being treated with levaquin which is susceptible. No change in treatment needed at this time.
== END 2019-01-02 17:01 | disposition home or self-care (01) ==
LOC: ED 13:22
DX: R41.0 Disorientation, unspecified (principal); N39.0 Urinary tract infection, site not specified; I10 Essential (primary) hypertension; Z79.899 Other long term (current) drug therapy; W19.XXXA Unspecified fall, initial encounter; M50.30 Other cervical disc degeneration, unspecified cervical region
CPT/HCPCS: 36415; 70450; 71045; 72125; 80053; 82140; 83605; 83735; 84484; 85025; 85610; 93005; 96360; 99283

== ENCOUNTER 2023-11-18 15:45 | Inpatient (IN) ==
[2023-11-18] MEDS: cefTRIAXone 1 gm/50 mL D5W 1 GM/50 ML BAG IV ONE (16:35)
[2023-11-18] MEDS: NORMOSOL-R pH 7.4 SEPSIS* BAG 2,330 ML IV ONE (16:37)
[2023-11-18 16:38] LABS: Hematocrit 32.7 % (38-53); Hemoglobin 11.3 g/dL (13.2-16.3); Mean Corpuscular Hemoglobin 31.4 pg (27-33); Mean Corpuscular Hgb Conc 34.7 g/dL (31-36); Mean Corpuscular Volume 90.7 fL (80-97); Mean Platelet Volume 8.7 fL (7.5-11.2); Platelet Count 209 10^3/uL (150-450); Red Cell Distribution Width 13.1 % (12-17); White Blood Count 10.1 10^3/uL (3.6-10.2)
[2023-11-18 16:45] LABS: INR 1.11 (0.83-1.13)
[2023-11-18] MEDS: Azithromycin 500 mg/250 ml NS 500 MG/250 ML BAG IVPB ONE (16:47)
[2023-11-18 17:05] LABS: Urine Appearance Turbid; Urine Bilirubin Negative (Negative); Urine Blood 1+ (Negative); Urine Color Yellow; Urine Glucose Negative (Negative); Urine Ketones Trace (Negative); Urine Nitrite Negative (Negative); Urine Protein 1+ (>=30 mg/dL) (Negative); Urine Specific Gravity 1.027 (1.002-1.030); Urine Urobilinogen Negative (Negative); Urine pH 5.5 (5.0-8.0)
[2023-11-18 17:12] LABS: ABS Lymphocytes 0.4 10^3/uL (1.0-4.8); ABS Monocytes 0.3 10^3/uL (0.0-1.1); ABS Neutrophils 9.3 10^3/uL (1.5-7.6); Lymphocyte % 4.4 %; RBC Morphology Normal (Normal)
[2023-11-18 17:15] LABS: Urine Bacteria 1+ /HPF (Absent); Urine Red Blood Cell 1+(3-5/hpf) /HPF (0-Trace); Urine Squamous Epithelial Cell Present /HPF (Absent); Urine White Blood Cell Trace(0-5/hpf) /HPF (0-Trace)
[2023-11-18 17:24] LABS: Albumin 4.1 g/dL (3.2-5.2); Albumin/Globulin Ratio 1.7 (1-3); C Reactive Protein 88.58 mg/L (<8.01); Calcium 8.7 mg/dL (8.6-10.3); Creatinine, Serum 1.15 mg/dL (0.67-1.17); Globulin 2.4 g/dL (2-4); Potassium 3.4 mmol/L (3.5-5.0); Total Bilirubin 1.4 mg/dL (0.2-1.0); Total Protein 6.5 g/dL (6.4-8.9); eGFR CKD-EPI 64.3 (>60)
[2023-11-18 17:46] LABS: PCO2 Arterial 27 mmHg (35-45); PO2 Arterial 70 mmHg (80-100)
[2023-11-18] MEDS: Acetaminophen IV 1 GM/100ML 1,000 MG/100 ML BAG IV ONE ×2 (17:53→23:23)
[2023-11-18 18:03] LABS: High Sensitivity Troponin 1 Hr 9 pg/mL (<20)
[2023-11-18] MEDS ORDERED: SUVOREXANT 20 MG PO PRN (19:45)
[2023-11-18] MEDS ORDERED: Magnesium Hydroxide LIQ 30 ML UDC PO PRN (19:45)
[2023-11-18 20:41] LABS: Magnesium 1.7 mg/dL (1.9-2.7)
[2023-11-18] MEDS: KCL 20 MEQ/100 ML IVPREMIX 20 MEQ/100 ML BAG IV SCH (22:22)
[2023-11-18] MEDS: CMCS: Rivastigmine 1.5 mg CAP (NF) PO SCH (22:25)
[2023-11-18] MEDS: Magnesium Sulf 4 GM/100 ML IV 4,000 MG/100 ML BAG IVPB ONE (22:52)
[2023-11-18] MEDS: Lactated Ringers 1000 ml BAG 1,000 ML IV ONE (22:59)
[2023-11-18] MEDS: Acetylcysteine INH SOL (RT) 200 MG/ML 4 ML VIAL INH ONE (23:33)
[2023-11-18] MEDS: Albuterol/Ipratropium NEB.SOL (2.5/0.5 MG) 3 ML NEB.SOLN INH ONE ×2 (23:33→23:34)
[2023-11-19] MEDS: Enoxaparin 40 MG/0.4 ML SYR SUBCUT SCH (01:22)
[2023-11-19] MEDS: NS 0.9% 1000 ml BAG 1,000 ML IV SCH (01:22)
[2023-11-19 06:09] LABS: Hematocrit 28.5 % (38-53); Hemoglobin 10.1 g/dL (13.2-16.3); Mean Corpuscular Hemoglobin 32.1 pg (27-33); Mean Corpuscular Hgb Conc 35.6 g/dL (31-36); Mean Corpuscular Volume 90.2 fL (80-97); Mean Platelet Volume 8.7 fL (7.5-11.2); Platelet Count 170 10^3/uL (150-450); Red Blood Count 3.16 10^6/uL (4.06-5.63); Red Cell Distribution Width 13.1 % (12-17); White Blood Count 10.1 10^3/uL (3.6-10.2)
[2023-11-19 06:56] LABS: Calcium 8.2 mg/dL (8.6-10.3); Creatinine, Serum 0.93 mg/dL (0.67-1.17); Magnesium 2.8 mg/dL (1.9-2.7); Potassium 3.7 mmol/L (3.5-5.0)
[2023-11-19 07:10] LABS: TSH Ultra Thyroid Stim Horm 1.1 mcIU/mL (0.34-5.60)
[2023-11-19] MEDS: Haloperidol 5 mg/ml SDV IV/IM 5 MG/ML AMP IV SLOW PU ONE ×2 (10:27→12:10)
[2023-11-19] MEDS: Polyethylene Glycol 3350 17 GM PACKET PO SCH (10:41)
[2023-11-19] MEDS: cefTRIAXone 1 gm/50 mL D5W 1 GM/50 ML BAG IV SCH (15:48)
[2023-11-19] MEDS: DOXYcycline 100 MG in NS 0.9% 250 ml 250 ML IVPB SCH (16:24)
[2023-11-19] MEDS: CMCS:Rivastigmine 1.5 mg CAP (NF) PO SCH (20:44)
[2023-11-19] MEDS ORDERED: SUVOREXANT 20 MG PO PRN (21:00)
[2023-11-20 06:18] LABS: ABS Lymphocytes 0.6 10^3/uL (1.0-4.8); ABS Monocytes 0.5 10^3/uL (0.0-1.1); ABS Neutrophils 6.8 10^3/uL (1.5-7.6); Eosinophil % 0.1 %; Hematocrit 29.5 % (38-53); Hemoglobin 10.2 g/dL (13.2-16.3); Lymphocyte % 7.7 %; Mean Corpuscular Hemoglobin 31.4 pg (27-33); Mean Corpuscular Hgb Conc 34.7 g/dL (31-36); Mean Corpuscular Volume 90.5 fL (80-97); Mean Platelet Volume 8.8 fL (7.5-11.2); Platelet Count 162 10^3/uL (150-450); Red Blood Count 3.26 10^6/uL (4.06-5.63); Red Cell Distribution Width 13.4 % (12-17)
[2023-11-20 06:57] LABS: Calcium 7.7 mg/dL (8.6-10.3); Creatinine, Serum 0.82 mg/dL (0.67-1.17); Potassium 3.7 mmol/L (3.5-5.0); eGFR CKD-EPI 88.8 (>60)
[2023-11-21 06:02] LABS: ABS Lymphocytes 0.7 10^3/uL (1.0-4.8); ABS Monocytes 0.5 10^3/uL (0.0-1.1); ABS Neutrophils 5.8 10^3/uL (1.5-7.6); Eosinophil % 0.5 %; Hemoglobin 11.1 g/dL (13.2-16.3); Lymphocyte % 10.4 %; Mean Corpuscular Hemoglobin 31.4 pg (27-33); Mean Corpuscular Hgb Conc 34.8 g/dL (31-36); Mean Corpuscular Volume 90.2 fL (80-97); Mean Platelet Volume 9.1 fL (7.5-11.2); Platelet Count 173 10^3/uL (150-450); Red Blood Count 3.55 10^6/uL (4.06-5.63); Red Cell Distribution Width 13.1 % (12-17)
[2023-11-21 06:28] LABS: Creatinine, Serum 0.76 mg/dL (0.67-1.17); Magnesium 1.7 mg/dL (1.9-2.7); Potassium 3.4 mmol/L (3.5-5.0); eGFR CKD-EPI 90.9 (>60)
[2023-11-21] MEDS: KCL 20 MEQ/100 ML IVPREMIX 20 MEQ/100 ML BAG IV SCH (07:43)
[2023-11-21] MEDS: Magnesium Sulfate 2 gm BAG 2 GM/50 ML BAG IVPB ONE (07:43)
[2023-11-22 06:13] LABS: ABS Eosinophils 0.1 10^3/uL (0.0-0.5); ABS Lymphocytes 0.8 10^3/uL (1.0-4.8); ABS Monocytes 0.9 10^3/uL (0.0-1.1); ABS Nucleated RBC 0.01 10^3/ul; Eosinophil % 1.2 %; Hematocrit 32.6 % (38-53); Hemoglobin 11.3 g/dL (13.2-16.3); Lymphocyte % 8.6 %; Mean Corpuscular Hemoglobin 31.4 pg (27-33); Mean Corpuscular Hgb Conc 34.8 g/dL (31-36); Mean Corpuscular Volume 90.3 fL (80-97); Nucleated Red Blood Cells % 0.1 %/100WBC (0.0-0.8); Platelet Count 207 10^3/uL (150-450); Red Blood Count 3.61 10^6/uL (4.06-5.63); Red Cell Distribution Width 13.1 % (12-17); White Blood Count 8.8 10^3/uL (3.6-10.2)
[2023-11-22 06:31] LABS: Calcium 8.3 mg/dL (8.6-10.3); Creatinine, Serum 0.74 mg/dL (0.67-1.17); Magnesium 1.8 mg/dL (1.9-2.7); Potassium 3.6 mmol/L (3.5-5.0); eGFR CKD-EPI 91.6 (>60)
[2023-11-22] MEDS: Magnesium Sulfate 2 gm BAG 2 GM/50 ML BAG IVPB ONE (09:09)
[2023-11-22] MEDS: cefTRIAXone 1 gm/50 mL D5W 1 GM/50 ML BAG IV SCH (10:11)
[2023-11-22 10:15] LABS: Rapid COVID-19 Molecular Undetected (Undetected)
[2023-11-22 11:46] VITALS: BP 161/84
== END 2023-11-22 10:46 | DRG 871 ==
LOC: EDHOLD 15:45 → ED 15:45 → SUATTDRO 18:48 → MEDTELE 21:04
PROVIDERS: ADMIT Hospitalist; ATTEND Student in an Organized Health Care Education/Training Program